=== PATIENT | female | born 1960 | race Caucasian/White ===

== ENCOUNTER 2017-07-19 08:44 | Emergency (ER) | payer MEDICAID ==
[~2017-07-19] VITALS: Ht 167.6 cm; Wt 49.9 kg
[2017-07-19] MEDS ORDERED: TYLENOL EXTRA500 MG PO (09:02)
[2017-07-19] MEDS ORDERED: NORCO 5-325 TA1 EACH PO (09:02)
[2017-07-19] MEDS ORDERED: TREANDA25 MG IV (09:02)
[2017-07-19] MEDS ORDERED: NAPROSYN500 MG PO (11:15)
--- NOTE | 2017-07-19 23:30 | EKG ---
[facility] [address] [place] [address] Signed Marked sinus bradycardia with sinus arrhythmia Abnormal ECG When compared with ECG of 19-JUL-2017 08:50, (Unconfirmed) Vent. rate has decreased BY 36 BPM QT has shortened Confirmed by BRIE RODRIGUEZ MD ([id number]) on 07/19/2017 11:29:56 PM Electronically Signed By: BRIE RODRIGUEZ MD 07/19/17 2330 PATIENT NAME: CHIKA BENITO Electrocardiogram DATE OF : 64 PHYSICIAN: BRIE RODRIGUEZ MD REPORT #: [id number] REPORT IS CONFIDENTIAL AND NOT TO BE RELEASED WITHOUT AUTHORIZATION
--- NOTE | 2017-07-19 23:30 | EKG ---
[facility] [address] [facility] [place], [place] [address] Signed Sinus rhythm with short [place] Otherwise normal ECG No previous ECGs available Confirmed by BRIE RODRIGUEZ MD ([id number] on 07/19/2017 11:29:50 PM Electronically Signed By: BRIE RODRIGUEZ MD 07/19/17 2330 PATIENT NAME: CHIKA BENITO Electrocardiogram DATE OF : 64 PHYSICIAN: BRIE RODRIGUEZ MD REPORT #: [id number] REPORT IS CONFIDENTIAL AND NOT TO BE RELEASED WITHOUT AUTHORIZATION
== END 2017-07-19 11:30 | disposition home or self-care (01) ==
LOC: ED 08:44
DX: M54.12 Radiculopathy, cervical region (principal); F17.200 Nicotine dependence, unspecified, uncomplicated; Z88.5 Allergy status to narcotic agent; Z79.899 Other long term (current) drug therapy
CPT/HCPCS: 71046; 80053; 84484; 85025; 85610; 93005; 93010; 96374; 99284; G0480; J1885